=== PATIENT | male | born 1980 | race Caucasian/White ===

== ENCOUNTER 2017-02-03 10:16 | Emergency (ER) | payer MEDICAID ==
[~2017-02-03] VITALS: Ht 190.5 cm; Wt 94.0 kg
[2017-02-03 13:00] VITALS: BP 137/75
[2017-02-03] MEDS ORDERED: KETOROLAC 60MG/2ML VIAL IM ONE (13:00)
== END 2017-02-03 13:06 | disposition home or self-care (01) ==
LOC: ER 11:07
DX: M25.511 Pain in right shoulder (principal); F17.210 Nicotine dependence, cigarettes, uncomplicated
CPT/HCPCS: 96372; 99283; J1885